=== PATIENT | female | born 1945 | race Caucasian/White ===

== ENCOUNTER → 2024-03-25 | Outpatient (CLI) | payer OTHER ==
--- NOTE | 2024-03-25 11:12 | HMCIMG ---
THYROID ULTRASOUND History: Lymphadenitis Comparison: None Findings: The examination shows normal thyroid lobes. No thyroid masses are seen. There are no nodules. Vascularity is unremarkable. The right lobe measures 3.1 x 0.9 x 1 cm. The left lobe measures 2.9 x 0.9 x 0.8 cm. The isthmus measures 2 mm. No fluid collections are seen. Multiple normal sized lymph nodes of the neck are seen. IMPRESSION: Normal exam. Multiple normal sized lymph nodes of the neck are seen.
== END | disposition home or self-care (01) ==
LOC: RAH 10:24
PROVIDERS: ATTEND Family Medicine
DX: L04.0 Acute lymphadenitis of face, head and neck (principal); E03.8 Other specified hypothyroidism
CPT/HCPCS: 76536